=== PATIENT | male | born 1975 | race Caucasian/White ===

== ENCOUNTER 2024-01-16 08:52 | Emergency (ER) | payer OTHER ==
[~2024-01-16] VITALS: Ht 182.9 cm; Wt 99.8 kg
[2024-01-16] MEDS ORDERED: Ventolin5 MG/1 ML INH (09:36)
[2024-01-16 09:55] LABS: BASOPHILS ABSOLUTE AUTO 0.03 K/mm3 (0.00-0.23); BASOPHILS PERCENT AUTO 1 % (0-2); EOSINOPHILS ABSOLUTE AUTO 0.34 K/mm3 (0.00-0.68); EOSINOPHILS PERCENT AUTO 5 % (0-6); Hematocrit 41.8 % (37.0-53.0); Hemoglobin 15.1 g/dL (13.5-17.5); IMMATURE GRAN PERCENT AUTO 0 % (0-1); LYMPHOCYTES ABSOLUTE AUTO 3.05 K/mm3 (0.84-5.20); LYMPHOCYTES PERCENT AUTO 48 % (21-46); MONOCYTES ABSOLUTE AUTO 0.56 K/mm3 (0.16-1.47); MONOCYTES PERCENT AUTO 9 % (4-13); Mean Corpuscular HGB 37.7 pg (26.0-34.0); Mean Corpuscular HGB Conc 36.1 g/dL (31.5-36.5); Mean Corpuscular Volume 104 fL (80-100); Mean Platelet Volume 10.5 fL (9.1-12.4); NEUTROPHILS ABSOLUTE AUTO 2.32 K/mm3 (1.96-9.15); NEUTROPHILS PERCENT AUTO 37 % (41-73); Platelet Count 97 K/mm3 (150-400); RDW Coefficient Variation 15.7 % (11.7-14.2); RDW Standard Deviation 60.2 fL (35.1-46.3); Red Blood Cell Count 4.01 M/mm3 (4.30-5.90)
[2024-01-16 10:11] LABS: Bun/Creatinine Ratio 19.8 (12.0-20.0); Calcium, Blood 9.6 mg/dL (8.5-10.1); Creatinine, Blood 0.81 mg/dL (0.60-1.20); Potassium, Blood 4.5 mmol/L (3.5-5.5)
[2024-01-16 10:41] LABS: Influenza A, PCR NEGATIVE (NEGATIVE); Influenza B, PCR NEGATIVE (NEGATIVE); Resp Syncytial Virus, PCR NEGATIVE (NEGATIVE); SARS-Cov-2 (COVID-19) PCR, MMC NEGATIVE (NEGATIVE)
[2024-01-16] MEDS ORDERED: Acetaminophen 500 MG Tab PO ONE (10:50)
[2024-01-16] MEDS ORDERED: Ketorolac Tromethamine 15mg Vial IM ONE (10:50)
== END 2024-01-16 11:20 | disposition home or self-care (01) ==
LOC: ER 08:52
PROVIDERS: Student in an Organized Health Care Education/Training Program
DX: M25.50 Pain in unspecified joint (principal); G89.29 Other chronic pain; D69.6 Thrombocytopenia, unspecified; J45.909 Unspecified asthma, uncomplicated
CPT/HCPCS: 0241U; 80048; 85025; 96372; 99284-25; A9270; J1885

== ENCOUNTER 2024-03-25 10:10 | Emergency (ER) | payer OTHER ==
[~2024-03-25] VITALS: Ht 182.9 cm; Wt 104.3 kg
[~2024-03-25 10:10] MED LIST: Ventolin5 MG/1 ML INH
[2024-03-25 10:54] LABS: BASOPHILS ABSOLUTE AUTO 0.03 K/mm3 (0.00-0.23); BASOPHILS PERCENT AUTO 0 % (0-2); EOSINOPHILS ABSOLUTE AUTO 0.28 K/mm3 (0.00-0.68); EOSINOPHILS PERCENT AUTO 4 % (0-6); Hematocrit 47.1 % (37.0-53.0); Hemoglobin 16.3 g/dL (13.5-17.5); IMMATURE GRAN ABSOLUTE AUTO 0.02 K/mm3 (0.00-0.10); IMMATURE GRAN PERCENT AUTO 0 % (0-1); LYMPHOCYTES ABSOLUTE AUTO 2.96 K/mm3 (0.84-5.20); LYMPHOCYTES PERCENT AUTO 44 % (21-46); MONOCYTES ABSOLUTE AUTO 0.69 K/mm3 (0.16-1.47); MONOCYTES PERCENT AUTO 10 % (4-13); Mean Corpuscular HGB 36.6 pg (26.0-34.0); Mean Corpuscular HGB Conc 34.6 g/dL (31.5-36.5); Mean Corpuscular Volume 106 fL (80-100); Mean Platelet Volume 9.5 fL (9.1-12.4); NEUTROPHILS ABSOLUTE AUTO 2.79 K/mm3 (1.96-9.15); NEUTROPHILS PERCENT AUTO 41 % (41-73); Platelet Count 117 K/mm3 (150-400); RDW Coefficient Variation 14.8 % (11.7-14.2); RDW Standard Deviation 58.2 fL (35.1-46.3); Red Blood Cell Count 4.45 M/mm3 (4.30-5.90); White Blood Cell Count 6.77 K/mm3 (4.00-11.30)
[2024-03-25] MEDS ORDERED: Ketorolac Tromethamine 30mg Vial IV ONE (11:00)
[2024-03-25] MEDS ORDERED: Albuterol 2.5 MG/3 ML VIAL INH SCH (11:05)
[2024-03-25 11:10] LABS: Albumin, Blood 3.1 g/dL (3.4-5.0); Albumin/Globulin Ratio 0.6 (0.8-1.8); Bilirubin, Total 0.9 mg/dL (0.1-1.0); Bun/Creatinine Ratio 13.4 (12.0-20.0); Calcium, Blood 8.9 mg/dL (8.5-10.1); Creatinine, Blood 0.9 mg/dL (0.60-1.20); Globulin, Blood 5.1 g/dL (2.2-4.0); Potassium, Blood 4.1 mmol/L (3.5-5.5); Total Protein, Blood 8.2 g/dL (6.4-8.2)
[2024-03-25] MEDS ORDERED: MethylPREDNISolone Sod Succ 125 MG Vial IV ONE (12:35)
[2024-03-25] MEDS ORDERED: OXYC5 PO (12:51)
[2024-03-25] MEDS ORDERED: AZIT250 PO (12:51)
[2024-03-25] MEDS ORDERED: METPRE4DP PO (12:51)
== END 2024-03-25 13:11 | disposition home or self-care (01) ==
LOC: ER 10:10
PROVIDERS: Emergency Medicine
DX: J98.8 Other specified respiratory disorders (principal); B97.89 Other viral agents as the cause of diseases classified elsewhere
CPT/HCPCS: 71046; 80053; 85025; 93005; 93010; 94644; 94664; 96374; 96375; 99285-25; J1885; J2919

== ENCOUNTER 2024-07-05 11:10 | Inpatient (IN) | payer OTHER ==
[~2024-07-05] VITALS: Ht 185.4 cm; Wt 110.5 kg
[~2024-07-05 11:10] MED LIST changes: +AZIT250 PO; +METPRE4DP PO; +OXYC5 PO
[2024-07-05 12:15] LABS: BASOPHILS ABSOLUTE AUTO 0.07 K/mm3 (0.00-0.23); BASOPHILS PERCENT AUTO 0 % (0-2); EOSINOPHILS ABSOLUTE AUTO 0.09 K/mm3 (0.00-0.68); EOSINOPHILS PERCENT AUTO 1 % (0-6); Hematocrit 43.6 % (37.0-53.0); Hemoglobin 15.7 g/dL (13.5-17.5); IMMATURE GRAN ABSOLUTE AUTO 0.09 K/mm3 (0.00-0.10); IMMATURE GRAN PERCENT AUTO 1 % (0-1); LYMPHOCYTES ABSOLUTE AUTO 2.91 K/mm3 (0.84-5.20); LYMPHOCYTES PERCENT AUTO 16 % (21-46); MONOCYTES ABSOLUTE AUTO 1.75 K/mm3 (0.16-1.47); MONOCYTES PERCENT AUTO 10 % (4-13); Mean Corpuscular HGB 36.8 pg (26.0-34.0); Mean Corpuscular Volume 102 fL (80-100); Mean Platelet Volume 9.8 fL (9.1-12.4); NEUTROPHILS ABSOLUTE AUTO 13.22 K/mm3 (1.96-9.15); NEUTROPHILS PERCENT AUTO 73 % (41-73); Platelet Count 114 K/mm3 (150-400); RDW Coefficient Variation 14.6 % (11.7-14.2); RDW Standard Deviation 54.7 fL (35.1-46.3); Red Blood Cell Count 4.27 M/mm3 (4.30-5.90); White Blood Cell Count 18.13 K/mm3 (4.00-11.30)
[2024-07-05 12:44] LABS: CORONAVIRUS COVID-19 AG Negative (NEGATIVE); INFLUENZA A AG Negative (NEGATIVE); INFLUENZA B AG Negative (NEGATIVE)
[2024-07-05] MEDS ORDERED: Albuterol 2.5 MG/3 ML VIAL INH ONE (13:00)
[2024-07-05] MEDS ORDERED: Acetaminophen 500 MG Tab PO ONE (13:00)
[2024-07-05] MEDS ORDERED: NS 1,000 ML IV SCH (13:05)
[2024-07-05 13:08] LABS: Albumin, Blood 2.8 g/dL (3.4-5.0); Albumin/Globulin Ratio 0.6 (0.8-1.8); Bilirubin, Total 1.5 mg/dL (0.1-1.0); Bun/Creatinine Ratio 12.4 (12.0-20.0); Calcium, Blood 7.9 mg/dL (8.5-10.1); Creatinine, Blood 0.8 mg/dL (0.60-1.20); Potassium, Blood 4.5 mmol/L (3.5-5.5); Total Protein, Blood 7.8 g/dL (6.4-8.2)
[2024-07-05] MEDS ORDERED: Ketorolac Tromethamine 15mg Vial IV ONE (13:15)
[2024-07-05] MEDS ORDERED: CefTRIAXone Sodium 1,000 MG in NS 100 ML IV ONE (14:15)
[2024-07-05] MEDS ORDERED: Azithromycin 250 MG Tab PO ONE (14:15)
[2024-07-05] MEDS ORDERED: FLU VACC TS2024-25(6MOS UP)/PF 45 MCG/0.5 ML SYRINGE IM SCH (15:20)
[2024-07-05] MEDS ORDERED: Lactated Ringer's 1,000 ML IV SCH (15:20)
[2024-07-05] MEDS ORDERED: OMEP20ER PO (17:14)
--- NOTE | 2024-07-05 17:38 | NUR ---
ARRIVAL NOTE: PATIENT ARRIVED TO UNIT AND WAS SETTLED IN TO UNIT AND PATIENT STATED NO ONE NEEDED TO BE NOTIFIED OF HIS ARRIVAL. VITAL SIGNS STABLE, PATIENT ASKING FOR MEDICATIONS FOR RESTLESS LEG & MD CAME TO BEDSIDE. THIS RN NOTIFIED MD ABOUT PATIENTS REQUESTS. A MAG & IONIZED CALCIUM TO BE ORDERED.
[2024-07-05] MEDS ORDERED: TraMADol HCl 50 MG Tab PO PRN (18:00)
--- NOTE | 2024-07-05 18:13 | NUR ---
SHIFT SUMMARY: PATIENT ARRIVES TO UNIT 17:05, ORIENTED TO UNIT AND ROOM. PATIENT IS ALERT AND ORIENTED X4 AND COOPERATIVE WITH HIS CARE. IS ABLE TO MAKE NEEDS KNOWN AND USES CALL LIGHT APPROPRIATELY. ON TELW SHOWING SINUS RYTHM TO SINUS TACH 80-105 AT TIMES. SATTING >92% ON ROOM AIR, EVEN AND UNLABORED RESPIRATIONS. PATIENT REPORTED RESTLESS LEG & MD TO ORDER MEDICATIONS. LABS DRAWN, PENDING MAG & IONIZED CALCIUM. PATIENT HAS CALL LIGHT WITHIN REACH, BED IN LOWEST POSITION & STATING NOTHING IS NEEDED AT THIS TIME.
[2024-07-05] MEDS ORDERED: Mag Sulfate 1 GM/D5% 100ML 100 ML IV ONE (18:45)
[2024-07-05 19:56] VITALS: BP 144/82
[2024-07-05] MEDS ORDERED: rOPINIRole HCl 0.25 MG Tab PO SCH (21:00)
[2024-07-05] MEDS ORDERED: Lactobacil 2-S.Thermo-Bifido 1 1 Cap PO SCH (21:00)
[2024-07-05] MEDS ORDERED: Melatonin 5 MG Tablet PO PRN (23:20)
[2024-07-05] MEDS ORDERED: HyDROXyzine HCl 25 MG Tab PO PRN (23:20)
[2024-07-06] VITALS: BP 146/96
[2024-07-06] MEDS ORDERED: Albuterol 2.5 MG/3 ML VIAL INH PRN (03:55)
[2024-07-06 04:37] VITALS: BP 140/83
[2024-07-06] MEDS ORDERED: Omeprazole 20 MG CapCR PO SCH (06:00)
--- NOTE | 2024-07-06 06:56 | NUR ---
ASSUMPTION OF CARE: PT IRRITABLE, RESTLESS AND ANXIOUS. ASKING THIS RN FOR SOMETHING TO HELP HIM SLEEP. WHEN I ASKED WHAT HE TAKES AT HOME, HE TELLS ME BEER. I ASK HIM TO BE HONEST AND TELL ME HOW MUCH HE DRINKS DAILY. HE STATES HE DRINKS 3-4 BEERS NIGHTLY. WHEN ASKED IF HE HAS EVER GONE THROUGH ALCOHOL WITHDRAWLS HE TELLS ME NO. I REACHED OUT TO DR HEAD, AND SHARED WITH HIM WHAT THE PATIENT SHARED WITH ME AND ASKED IF HE WANTED CIWA ORDERS. DR HEAD STATED THAT HE DIDN'T THINK THAT WAS NECESSARY AT THIS TIME.
--- NOTE | 2024-07-06 06:57 | NUR ---
SHIFT SUMMARY: PT IS A&OX4, FLAT AFFECT, WITHDRAWN, AND DOES NOT MAKE EYE CONTACT. BP IS STABLE, HR IS SR IN THE 80'S AT REST, SATS >93% ON RA. WHEN PT FELL ASLEEP, HIS 02 SATS DROPPED TO 88%, PLACED HIM ON 2L NC, SATS >95%. TOLERATING A REGULAR DIET, SNACKING FREQUENTLY. INDEPENDENT TO BR. VOIDING LARGE AMOUNTS OF ORANGISH YELLOW URINE INDEPENDENTLY IN URINAL. NO BM THIS SHIFT. BED IN LOWEST POSITION, CALL LIGHT WITHIN REACH. CALLS APPROPRIATELY AND IS ABLE TO ADVOCATE NEEDS EFFECTIVELY.
[2024-07-06 08:48] VITALS: BP 136/91
[2024-07-06] MEDS ORDERED: Enoxaparin 40 MG/0.4 ML SYR SC SCH (09:00)
[2024-07-06] MEDS ORDERED: Doxycycline Hyclate 100 MG in Dextrose 5% 250 ML IV SCH (09:00)
[2024-07-06] MEDS ORDERED: Nicotine 14 MG PATCH TOP SCH (09:00)
[2024-07-06 10:14] LABS: BASOPHILS ABSOLUTE AUTO 0.04 K/mm3 (0.00-0.23); BASOPHILS PERCENT AUTO 1 % (0-2); EOSINOPHILS ABSOLUTE AUTO 0.33 K/mm3 (0.00-0.68); EOSINOPHILS PERCENT AUTO 4 % (0-6); Hematocrit 39.4 % (37.0-53.0); Hemoglobin 14.2 g/dL (13.5-17.5); IMMATURE GRAN ABSOLUTE AUTO 0.03 K/mm3 (0.00-0.10); IMMATURE GRAN PERCENT AUTO 0 % (0-1); LYMPHOCYTES ABSOLUTE AUTO 2.05 K/mm3 (0.84-5.20); LYMPHOCYTES PERCENT AUTO 26 % (21-46); MONOCYTES ABSOLUTE AUTO 0.71 K/mm3 (0.16-1.47); MONOCYTES PERCENT AUTO 9 % (4-13); Mean Corpuscular HGB 37.2 pg (26.0-34.0); Mean Corpuscular Volume 103 fL (80-100); NEUTROPHILS ABSOLUTE AUTO 4.74 K/mm3 (1.96-9.15); NEUTROPHILS PERCENT AUTO 60 % (41-73); Platelet Count 91 K/mm3 (150-400); RDW Coefficient Variation 14.6 % (11.7-14.2); RDW Standard Deviation 54.8 fL (35.1-46.3); Red Blood Cell Count 3.82 M/mm3 (4.30-5.90)
[2024-07-06 10:18] LABS: Bun/Creatinine Ratio 16.6 (12.0-20.0); Calcium, Blood 8.1 mg/dL (8.5-10.1); Creatinine, Blood 0.66 mg/dL (0.60-1.20); Magnesium, Blood 1.7 mg/dL (1.6-2.4); Potassium, Blood 3.8 mmol/L (3.5-5.5)
[2024-07-06] MEDS ORDERED: Insulin Human Lispro 100 Units/ML 3ML Syringe SC SCH (11:30)
--- NOTE | 2024-07-06 11:48 | NUR ---
Transfer note Pt sleping this am, alert and oriented. Answering questions appropriately, able to make needs known. Pt denies pain, chest pain/pressure, nausea, dizziness and numb/tingling. Spo2 >90% on ra, breathing tachpnic, reports sob is the same as admission. Tele sinus 70-80's, bp stable. Abd mild distended, normal for patient, soft, nontender, +bt. Discussed glucose on morning labs, new order for A1C, achs glucose check, insulin and to d/c fluids. Other vss. No other acute changes noted. Report given to RN assuming care of patient. Pt left room via wheelchair at 1133.
[2024-07-06] MEDS ORDERED: CefTRIAXone Sodium 1,000 MG in NS 100 ML IV SCH (12:00)
[2024-07-06] MEDS ORDERED: ALBU2.5V5 INH (12:23)
[2024-07-06] MEDS ORDERED: TRAM50 PO (12:30)
[2024-07-06] MEDS ORDERED: NS 250 ML IV PRN (14:35)
[2024-07-06 16:16] VITALS: BP 160/107
[2024-07-06] MEDS ORDERED: HyDROXyzine HCl 25 MG Tab PO PRN (16:25)
--- NOTE | 2024-07-06 16:25 | NUR ---
PT SLIPPED OUT FOR A WALK- PT WENT FOR A WALK, WAS GONE FOR ABOUT 20-30 MINUTES. RECIEVED A CALL FROM TELE PT HR WAS TACHY UP TO THE 150'S WITH A LOT OF ARTIFACT. CALLED SECURITY FOR ASSISTANCE IN LOCATING THE PT. PT RETURNED TO HIS ROOM ON HIS OWN BEFORE BEING LOCATED. ONCE BACK IN THE ROOM THE PT SEEMED WINDED AND HAD TO USE THE RESTROOM. TELE CALLED AGAIN WHILE HE WAS IN THE BATHROOM. FULL SET OF VITALS CHECKED. CALLED DR DOCKERY. PT STATED HE WAS WALKING "ALL OVER THE HOSPITAL" AND THAT HE WAS TALKING ON THE PHONE TO HIS BOSS AND HR AND HIS FAMILY. HE EXPRESSED CONCERN OVER HIS JOB AND FINANCES, SEEMED VERY EMOTIONALLY DISTRESSED. RECIEVED A OT ORDER FOR PRN ATARAX NOW.
[2024-07-06 19:30] VITALS: BP 155/97
--- NOTE | 2024-07-06 20:16 | NUR ---
SHIFT SUMMARY- PT ALERT AND ORIENTED. THIS RN HAD A CONVERSATION WITH THE PT ABOUT FIRE SAFETY IN THE HOSPITAL. THE PT IS A CEDS, THIS RN ASKED IF HE HAS CIGGARETTES OR A BIOINFORMATICIST IN HIS BELONGINGS AND HE BECAME DEFENSIVE (NEVER CONFIRMING OR DENYING THAT HE DOES OR DOESNT HAVE THEM) HE DECLINED TO ALLOW STAFF TO LOOK THROUGH HIS BAG FOR SAFETY CONCERNS. HE ACKNOWLEDGED THAT O2 IS FLAMMABLE AND HE STATES HE WONT BE LIGHTING UP AT ALL. PT IN BED, CALL LIGHT IN REACH NO S&S OF DISTRESS NOTED, BEDSIDE REPORT COMPLETED ATARAX SEEMED TO HELP HIS ANXIETY A LOT.
[2024-07-07 00:05] VITALS: BP 147/100
[2024-07-07 04:34] VITALS: BP 168/105
--- NOTE | 2024-07-07 04:39 | NUR ---
PT TRENDING ELEVATED BP. PT ASYMPTOMATIC. HOSPITALIST NOTIFIED AND NO NEW ORDERS GIVEN. PT HAS NO CARDIAC HX, SO WILL CONTINUE TO MONITOR AND TO NOTIFY HOSPITALIST IF SYSTILIC >180.
--- NOTE | 2024-07-07 05:01 | NUR ---
SHIFT SUMMARY NOC PT A/O X 4. FLAT AFFECT, BUT COOPERATIVE WITH CARE. DIASTOLIC BP ELEVATED DURING MIDNIGHT VS. PT ANXIETY MANAGED PER EMAR. PT EXPRESSING FRUSTRATION AT STILL BEING HOSPITALIZED. PT ON TELE SINUS RHYTHM IN 80'S WITH NO EVENTS. PT EXPECTED TO DISCHARGE HOME TODAY. PT CURRENTLY RESTING WITH BED IN LOWEST POSITION, AND CALL LIGHT WITHIN REACH.
[2024-07-07 07:42] VITALS: BP 154/99
[2024-07-07 11:01] VITALS: BP 140/107
[2024-07-07] MEDS ORDERED: ROPI.25 PO (12:46)
[2024-07-07] MEDS ORDERED: VISBIOME 112.51 EACH PO (12:46)
[2024-07-07] MEDS ORDERED: Nicoderm Cq1 EAC1 TOP (12:46)
[2024-07-07] MEDS ORDERED: AMOCLA875 PO (12:46)
--- NOTE | 2024-07-07 14:34 | NUR ---
ASSUMED CARE OF PT. A/O X 4 WITH FLAT AFFECT, STATES HE WOULD LIKE TO LEAVE BECAUSE HIS BOSS IS CALLING HIM. I INSTRUCTED PT TO SPEAK WITH MD. NO C/O PAIN NO DIFFICULTY IN BREATHING, CALL LIGHT WITHIN REACH. CALLS APPROPRIATLY
--- NOTE | 2024-07-07 14:36 | NUR ---
1220 DR DOCKERY IN WITH PT AND DISCHARGE ORDERS GIVEN, ORDERS IMPLEMNETED AND IV DCED. PT TO TAKE TAXI HOME AT 1430.
--- NOTE | 2024-07-07 14:37 | NUR ---
1400 PT PREFER TO WAIT DOWN STAIRS. PT VERBALIZED UNDERSTANDING OF DISCHARGE AND AMB TO FIRST FLOOR TO WAIT.
== END 2024-07-07 14:35 | disposition home or self-care (01) | DRG 871 ==
LOC: ER 11:10 → PCU 15:16 → MEDS 07-06 11:42
PROVIDERS: Physician Assistant; ADMIT Family Medicine
DX: A41.9 Sepsis, unspecified organism (principal); J18.9 Pneumonia, unspecified organism; E87.1 Hypo-osmolality and hyponatremia; J44.9 Chronic obstructive pulmonary disease, unspecified; D69.6 Thrombocytopenia, unspecified; J45.909 Unspecified asthma, uncomplicated; F17.210 Nicotine dependence, cigarettes, uncomplicated; I45.10 Unspecified right bundle-branch block; G25.81 Restless legs syndrome; K21.9 Gastro-esophageal reflux disease without esophagitis; E66.9 Obesity, unspecified; R65.20 Severe sepsis without septic shock; E80.7 Disorder of bilirubin metabolism, unspecified; Z79.51 Long term (current) use of inhaled steroids; Z79.2 Long term (current) use of antibiotics; Z79.891 Long term (current) use of opiate analgesic; Z98.890 Other specified postprocedural states; Z68.32 Body mass index [BMI] 32.0-32.9, adult; Z79.899 Other long term (current) drug therapy
CPT/HCPCS: 36415; 70450; 71046; 71260; 80048; 80053; 82330; 82947; 83036; 83605; 83735; 85025; 85379; 87040; 87428-QW; 93005; 93010; 94640; 94664; 96365; 96375; 99285-25; A9270; J0696; J1885; J3475; J7050; J7060; J7120; Q9967

== ENCOUNTER 2024-08-18 11:30 | Day surgery (SDC) | payer OTHER ==
[~2024-08-18] VITALS: Ht 185.4 cm; Wt 109.2 kg
[~2024-08-18 11:30] MED LIST changes: +ALBU2.5V5 INH; +AMOCLA875 PO; +Lactated Ringer's 1,000 ML IV ONE; +Nicoderm Cq1 EAC1 TOP; +OMEP20ER PO; +ROPI.25 PO; +TRAM50 PO; +VISBIOME 112.51 EACH PO
[2024-08-18] MEDS ORDERED: Lactated Ringer's 1,000 ML IV ONE (12:51)
[2024-08-18] MEDS ORDERED: Ipratropium/Albuterol SulF 2.5-0.5MG/3 ML Amp ONE (13:03)
[2024-08-18] MEDS ORDERED: Lidocaine HCl 4% 5 ML SDA ONE (13:04)
[2024-08-18] MEDS ORDERED: Metoclopramide HCl 5MG / ML 2ML Vial ONE (13:16)
[2024-08-18] MEDS ORDERED: Famotidine 10 MG/ML 2ML Vial ONE (13:17)
[2024-08-18] MEDS ORDERED: propofoL 50 ML IV ONE ×2 (13:21→13:49)
--- NOTE | 2024-08-18 15:34 | NUR ---
08/18/24 1534 Rylan Cruz IN STEP DOWN THIS RN ASKED WHO WAS TAKING HIM HOME IN PREPARATION FOR DISCHARGE. PT STATED HE WAS GOING TO WALK TO [facility] EMERGENCY [facility]PARTMENT AND REQUEST AN "MRI AND XRAYS" THEN DRIVE HIMSELF HOME AFTERWARDS. PT HAD THE NAME "IKER - " AND A PHONE NUMBER LISTED A RIDE HOME HOWEVER HE NOW STATED SHE WAS SICK AND COULDN'T PICK HIM UP. PT WAS INFORMED THAT HE WAS REQUIRED TO HAVE A RIDE HOME DUE TO SEDATION MAKING DRIVING HIMSELF DANGEROUS. HE WAS WARNED THAT SECURITY WOULD BE NOTIFIED IF HE FAILED TO OBTAIN A RIDE. HE ARGUED AND INSISTED BUT REFUSED TO FOLLOW DIRECTION AND OBTAIN A RIDE. HE THEN STOOD UP AND WALKED TOWARD THE EXIT WHILE I FOLLOWED. I NOTIFIED STAFF OF THE OCCURANCE WHO THEN NOTIFIED HOSPITAL SECURITY.
[2024-08-18] MEDS ORDERED: VARENICLINE TA1 EACH PO (17:16)
[2024-08-18] MEDS ORDERED: ROPINIROLE HCL0.5 MG PO (17:16)
== END 2024-08-18 15:00 | disposition home or self-care (01) ==
LOC: ORSCSDS 11:30
PROVIDERS: Specialist
PROC: 0DB78ZX Excision of Stomach, Pylorus, Via Natural or Artificial Opening Endoscopic, Diagnostic (ICD-10-PCS; principal; 2024-08-18 13:15)
PROC: 0DB58ZX Excision of Esophagus, Via Natural or Artificial Opening Endoscopic, Diagnostic (ICD-10-PCS; principal; 2024-08-18 13:15)
PROC: 0DB98ZX Excision of Duodenum, Via Natural or Artificial Opening Endoscopic, Diagnostic (ICD-10-PCS; principal; 2024-08-18 13:15)
PROC: 0DBM8ZX Excision of Descending Colon, Via Natural or Artificial Opening Endoscopic, Diagnostic (ICD-10-PCS; principal; 2024-08-18 13:15)
PROC: 0DBP8ZX Excision of Rectum, Via Natural or Artificial Opening Endoscopic, Diagnostic (ICD-10-PCS; principal; 2024-08-18 13:15)
DX: K62.5 Hemorrhage of anus and rectum (principal); R19.7 Diarrhea, unspecified; R10.13 Epigastric pain; K21.9 Gastro-esophageal reflux disease without esophagitis; D12.4 Benign neoplasm of descending colon; D12.8 Benign neoplasm of rectum; F17.210 Nicotine dependence, cigarettes, uncomplicated; J45.909 Unspecified asthma, uncomplicated; R06.02 Shortness of breath; B34.9 Viral infection, unspecified; E86.0 Dehydration; Z79.899 Other long term (current) drug therapy
CPT/HCPCS: 70450; 71046; 80053; 85025; 87428-QW; 88305; 88342; 99285-25; J2003; J2704; J2765; J7030; J7120

== ENCOUNTER 2024-08-18 15:03 | Emergency (ER) | payer OTHER ==
[~2024-08-18] VITALS: Ht 185.4 cm; Wt 108.9 kg
[~2024-08-18 15:03] MED LIST changes: -Lactated Ringer's 1,000 ML IV ONE
[2024-08-18 16:10] LABS: BASOPHILS ABSOLUTE AUTO 0.02 K/mm3 (0.00-0.23); BASOPHILS PERCENT AUTO 0 % (0-2); EOSINOPHILS ABSOLUTE AUTO 0.03 K/mm3 (0.00-0.68); EOSINOPHILS PERCENT AUTO 1 % (0-6); Hematocrit 47.3 % (37.0-53.0); Hemoglobin 16.6 g/dL (13.5-17.5); IMMATURE GRAN ABSOLUTE AUTO 0.02 K/mm3 (0.00-0.10); IMMATURE GRAN PERCENT AUTO 0 % (0-1); LYMPHOCYTES PERCENT AUTO 34 % (21-46); MONOCYTES ABSOLUTE AUTO 0.71 K/mm3 (0.16-1.47); MONOCYTES PERCENT AUTO 14 % (4-13); Mean Corpuscular HGB 36.5 pg (26.0-34.0); Mean Corpuscular HGB Conc 35.1 g/dL (31.5-36.5); Mean Corpuscular Volume 104 fL (80-100); Mean Platelet Volume 9.8 fL (9.1-12.4); NEUTROPHILS ABSOLUTE AUTO 2.54 K/mm3 (1.96-9.15); NEUTROPHILS PERCENT AUTO 51 % (41-73); Platelet Count 75 K/mm3 (150-400); RDW Coefficient Variation 15.6 % (11.7-14.2); RDW Standard Deviation 59.7 fL (35.1-46.3); Red Blood Cell Count 4.55 M/mm3 (4.30-5.90); White Blood Cell Count 5.02 K/mm3 (4.00-11.30)
[2024-08-18 16:43] LABS: Albumin, Blood 2.8 g/dL (3.4-5.0); Albumin/Globulin Ratio 0.6 (0.8-1.8); Bilirubin, Total 0.8 mg/dL (0.1-1.0); Bun/Creatinine Ratio 17.7 (12.0-20.0); Calcium, Blood 8.1 mg/dL (8.5-10.1); Creatinine, Blood 1.81 mg/dL (0.60-1.20); Potassium, Blood 3.9 mmol/L (3.5-5.5); Total Protein, Blood 7.8 g/dL (6.4-8.2)
[2024-08-18 16:56] LABS: CORONAVIRUS COVID-19 AG Negative (NEGATIVE); INFLUENZA A AG Negative (NEGATIVE); INFLUENZA B AG Negative (NEGATIVE)
[2024-08-18] MEDS ORDERED: VARENICLINE TA1 EACH PO (17:16)
[2024-08-18] MEDS ORDERED: ROPINIROLE HCL0.5 MG PO (17:16)
[2024-08-18] MEDS ORDERED: NS 1,000 ML IV SCH (17:20)
== END 2024-08-18 18:15 | disposition home or self-care (01) ==
LOC: ER 15:03
PROVIDERS: Emergency Medicine
DX: B34.9 Viral infection, unspecified (principal); E86.0 Dehydration; F17.210 Nicotine dependence, cigarettes, uncomplicated; Z79.899 Other long term (current) drug therapy
CPT/HCPCS: 70450; 71046; 80053; 85025; 87428-QW; J7030

== ENCOUNTER 2024-12-05 12:34 | Emergency (ER) | payer OTHER ==
[~2024-12-05] VITALS: Ht 185.4 cm; Wt 113.4 kg
[~2024-12-05 12:34] MED LIST changes: +ROPINIROLE HCL0.5 MG PO; +VARENICLINE TA1 EACH PO
[2024-12-05 13:17] LABS: BASOPHILS ABSOLUTE AUTO 0.04 K/mm3 (0.00-0.23); BASOPHILS PERCENT AUTO 1 % (0-2); EOSINOPHILS ABSOLUTE AUTO 0.31 K/mm3 (0.00-0.68); EOSINOPHILS PERCENT AUTO 4 % (0-6); Hematocrit 45.5 % (37.0-53.0); Hemoglobin 16.1 g/dL (13.5-17.5); IMMATURE GRAN ABSOLUTE AUTO 0.03 K/mm3 (0.00-0.10); IMMATURE GRAN PERCENT AUTO 0 % (0-1); LYMPHOCYTES ABSOLUTE AUTO 2.78 K/mm3 (0.84-5.20); LYMPHOCYTES PERCENT AUTO 40 % (21-46); MONOCYTES ABSOLUTE AUTO 0.99 K/mm3 (0.16-1.47); MONOCYTES PERCENT AUTO 14 % (4-13); Mean Corpuscular HGB Conc 35.4 g/dL (31.5-36.5); Mean Corpuscular Volume 108 fL (80-100); NEUTROPHILS ABSOLUTE AUTO 2.89 K/mm3 (1.96-9.15); NEUTROPHILS PERCENT AUTO 41 % (41-73); NRBC ABSOLUTE 0.00 K/mm3 (0.00-0.02); NRBC Auto 0.0 /100 WBC (0.0-0.2); Platelet Count 90 K/mm3 (150-400); RDW Coefficient Variation 15.1 % (11.7-14.2); RDW Standard Deviation 60.4 fL (35.1-46.3)
[2024-12-05 13:50] LABS: Alanine Aminotransfer (ALT/SGP 54.0 U/L (12-78); Albumin, Blood 2.4 g/dL (3.4-5.0); Albumin/Globulin Ratio 0.4 (0.8-1.8); Anion Gap 1.0 mmol/L (3-11); Aspartate Aminotrans (AST/SGOT 92.0 U/L (12-37); Bilirubin, Total 1.1 mg/dL (0.1-1.0); Blood Urea Nitrogen 9.0 mg/dL (8-24); CO2, Blood 30.0 mmol/L (21-32); Calcium, Blood 8.2 mg/dL (8.5-10.1); Chloride, Blood 104.0 mmol/L (98-108); Creatinine, Blood 0.59 mg/dL (0.60-1.20); Globulin, Blood 5.4 g/dL (2.2-4.0); Glucose, Blood 140.0 mg/dL (70-99); Potassium, Blood 4.0 mmol/L (3.5-5.5); Sodium, Blood 131.0 mmol/L (136-145); Total Protein, Blood 7.8 g/dL (6.4-8.2)
[2024-12-05] MEDS ORDERED: NS 1,000 ML IV SCH (17:00)
[2024-12-05] MEDS ORDERED: Ketorolac Tromethamine 15mg Vial IV ONE (17:00)
== END 2024-12-05 19:15 | disposition home or self-care (01) ==
LOC: ER 12:34
PROVIDERS: Student in an Organized Health Care Education/Training Program
DX: R07.9 Chest pain, unspecified (principal); J44.89 Other specified chronic obstructive pulmonary disease; F17.210 Nicotine dependence, cigarettes, uncomplicated; Z79.899 Other long term (current) drug therapy
CPT/HCPCS: 71046; 80053; 84484; 85025; J1885; J7030

== ENCOUNTER 2025-01-04 13:06 | Emergency (ER) | payer OTHER ==
[~2025-01-04] VITALS: Ht 185.4 cm; Wt 113.4 kg
[2025-01-04 13:43] LABS: BASOPHILS ABSOLUTE AUTO 0.06 K/mm3 (0.00-0.23); BASOPHILS PERCENT AUTO 1 % (0-2); EOSINOPHILS ABSOLUTE AUTO 0.78 K/mm3 (0.00-0.68); EOSINOPHILS PERCENT AUTO 9 % (0-6); Hematocrit 45.9 % (37.0-53.0); Hemoglobin 16.4 g/dL (13.5-17.5); IMMATURE GRAN ABSOLUTE AUTO 0.05 K/mm3 (0.00-0.10); IMMATURE GRAN PERCENT AUTO 1 % (0-1); LYMPHOCYTES ABSOLUTE AUTO 3.13 K/mm3 (0.84-5.20); LYMPHOCYTES PERCENT AUTO 38 % (21-46); MONOCYTES ABSOLUTE AUTO 0.77 K/mm3 (0.16-1.47); MONOCYTES PERCENT AUTO 9 % (4-13); Mean Corpuscular HGB Conc 35.7 g/dL (31.5-36.5); Mean Corpuscular Volume 108 fL (80-100); NEUTROPHILS ABSOLUTE AUTO 3.49 K/mm3 (1.96-9.15); NEUTROPHILS PERCENT AUTO 42 % (41-73); NRBC ABSOLUTE 0.00 K/mm3 (0.00-0.02); NRBC Auto 0.0 /100 WBC (0.0-0.2); Platelet Count 109 K/mm3 (150-400); RDW Coefficient Variation 15.7 % (11.7-14.2); RDW Standard Deviation 63.0 fL (35.1-46.3)
[2025-01-04 13:58] LABS: Alanine Aminotransfer (ALT/SGP 49.0 U/L (12-78); Albumin, Blood 2.7 g/dL (3.4-5.0); Albumin/Globulin Ratio 0.5 (0.8-1.8); Anion Gap 7.0 mmol/L (3-11); Aspartate Aminotrans (AST/SGOT 102.0 U/L (12-37); Bilirubin, Total 1.6 mg/dL (0.1-1.0); Blood Urea Nitrogen 7.0 mg/dL (8-24); CO2, Blood 31.0 mmol/L (21-32); Calcium, Blood 8.8 mg/dL (8.5-10.1); Chloride, Blood 95.0 mmol/L (98-108); Creatinine, Blood 0.81 mg/dL (0.60-1.20); Globulin, Blood 5.6 g/dL (2.2-4.0); Glucose, Blood 140.0 mg/dL (70-99); Potassium, Blood 3.8 mmol/L (3.5-5.5); Sodium, Blood 129.0 mmol/L (136-145); Total Protein, Blood 8.3 g/dL (6.4-8.2)
[2025-01-04] MEDS ORDERED: Lidocaine 2% Viscous Soln 15 ML UDC PO ONE (14:40)
[2025-01-04] MEDS ORDERED: NS 1,000 ML IV SCH (15:00)
[2025-01-04] MEDS ORDERED: Ketorolac Tromethamine 30mg Vial IV ONE (16:20)
== END 2025-01-04 18:40 | disposition home or self-care (01) ==
LOC: ER 13:06
PROVIDERS: Physician Assistant
DX: R07.89 Other chest pain (principal); K21.9 Gastro-esophageal reflux disease without esophagitis; J44.89 Other specified chronic obstructive pulmonary disease; F17.210 Nicotine dependence, cigarettes, uncomplicated; Z59.89 Other problems related to housing and economic circumstances
CPT/HCPCS: 71046; 71260; 80053; 84484; 85025; 93005; 93010; 96361; 96374-59; 96375; 99285-25; A9270; J1885; J7030; Q9967